=== PATIENT | female | born 2000 | race Caucasian/White ===

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

== ENCOUNTER 2020-05-31 17:30 | Emergency (ER) | payer MEDICAID ==
[~2020-05-31] VITALS: Ht 152.4 cm; Wt 50.0 kg
[2020-05-31 17:48] VITALS: BP 104/68
[2020-05-31] MEDS ORDERED: iohexol 350MG/ML 100ml bottle IV ONE (18:35)
--- NOTE | 2020-05-31 19:30 | NUR ---
pt to ct
== END 2020-05-31 20:28 | disposition home or self-care (01) ==
LOC: ER 17:30
DX: U07.1 COVID-19 (principal)
CPT/HCPCS: 71275; 99285; Q9967

== ENCOUNTER 2020-06-17 10:36 | Emergency (ER) | payer MEDICAID ==
[~2020-06-17] VITALS: Ht 152.4 cm; Wt 43.0 kg
[2020-06-17 11:16] VITALS: BP 111/58
[2020-06-17] MEDS ORDERED: ERYT1OIN6 RIGHTEYE (11:28)
== END 2020-06-17 11:39 | disposition home or self-care (01) ==
LOC: ER 10:36
DX: H00.011 Hordeolum externum right upper eyelid (principal); M79.651 Pain in right thigh; Z98.890 Other specified postprocedural states
CPT/HCPCS: 99283